=== PATIENT | female | born 1935 | race African-American/Black ===

== ENCOUNTER 2019-01-21 10:56 | Emergency (ER) | payer BC, MEDICAID ==
[~2019-01-21] VITALS: Ht 162.6 cm; Wt 51.0 kg
[2019-01-21 11:11] VITALS: BP 134/65
== END 2019-01-21 12:50 | disposition home or self-care (01) ==
LOC: ER 11:07
DX: B02.9 Zoster without complications (principal); I11.9 Hypertensive heart disease without heart failure; Z88.0 Allergy status to penicillin
CPT/HCPCS: 99281